=== PATIENT | male | born 1945 | race Caucasian/White ===

== ENCOUNTER 2024-03-06 13:09 | Day surgery (SDC) | payer MEDICARE, OTHER | END 2024-03-06 15:24 | disposition home or self-care (01) | LOC: CSHRAD 13:09 | PROVIDERS: ATTEND Nurse Practitioner Family | PROC: B02BYZZ Computerized Tomography (CT Scan) of Spinal Cord using Other Contrast (ICD-10-PCS; principal; 2024-03-06) | DX: M48.062 Spinal stenosis, lumbar region with neurogenic claudication (principal) | CPT/HCPCS: 62284; 72132; 77003 ==